=== PATIENT | female | born 2000 | race Caucasian/White ===

== ENCOUNTER 2023-01-20 18:29 | Day surgery (SDC) | payer BC, SELFPAY ==
[2023-01-20 18:35] VITALS: BP 128/80; PULSE 59; RESP 14; TEMP 36.8; O2SAT 100; BMI 19.1
--- NOTE | 2023-01-20 18:42 | ED.ABDPAIN ---
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 Patient notes the onset of nausea approximately 48 hours ago and then loose stools yesterday. Today however she now has vomiting and significant loose stools, both nonbloody in nature. Today her pain has worsened quite a bed any she is rating it an 8/10. She shows this to be the periumbilical and suprapubic areas. She has not been able to take any medication. She knows of no ill contacts. She denies a sore throat cough or other respiratory illnesses. She does have body aches. Her friend accompanies her and she herself is not ill. Dimple is normally a healthy female. She denies any possibility of . No history of GI pathology including ulcerative colitis or Crohn's disease. She notes that the onset of the nausea occurred after eating at the cafeteria at [employer]. Related Data Home Medications Medication Instructions Recorded Confirmed plecanatide 3 mg tablet (Trulance) 5 mg PO DAILY 01/20/23 01/20/23 Allergies Allergy/AdvReac Type Severity Reaction Status Date / Time No Known Drug Allergies Allergy Verified 01/20/23 18:33 Review of Systems Status of ROS Reports: 10 or more systems reviewed and unremarkable except as noted in History and below Const Reports: chills and fatigue; Denies: fever Eyes Denies: change in vision ENMT Denies: throat pain, throat swelling, difficulty swallowing or hoarseness Cardio Denies: chest pain, swelling of feet/ankles or shortness of breath with exertion Resp Denies: shortness of breath, cough or wheezing GI Reports: abdominal pain, nausea, vomiting and diarrhea; Denies: difficulty swallowing or blood in stool Denies: painful urination, urinary frequency or urinary urgency Integ/Breast Denies: rash Neuro Denies: headache, numbness in extremities or weakness in extremities Endo Reports: fatigue Allergy/Immuno Denies: throat swelling or wheezing PFSH PFSH Social History Smoking Status: Never smoker How often do you have a drink containing alcohol: never AUDIT-C Alcohol total score: 0 Non-prescribed substance use: denies use Exam Narrative: Exam Narrative: Patient is alert and oriented. She seems very anxious about being here and and is borderline tearful. She is mentating normally and speech is appropriate. Eyes are clear. Oral cavity with moist mucous membranes. No lymphadenopathy. Heart with a regular rate and rhythm. Lungs are clear bilaterally. Abdomen shows tenderness chest beneath the umbilicus. I do not palpate any masses. Moving all extremities. Bowel sounds are present and are normal. Const: Vital Signs, click to edit/add: Vital Signs - 24 hr 01/20/23 18:35 01/20/23 19:40 Temperature 98.2 F Pulse Rate [Pulse Oximeter] 59 L 57 L Respiratory Rate 14 16 Blood Pressure [Ri ght Upper Arm] 128/80 124/85 Pulse Oximetry 100 98 Oxygen Delivery Me thod Room Air Room Air Documenting provider has reviewed patient's vital signs: yes Course Course ED Course: Differential diagnosis includes but is not limited to food borne illness, viral gastroenteritis, colitis, small-bowel obstruction, appendicitis. Will place IV and give Zofran 4 mg as well as 1 L of normal saline. Will check CBC, comprehensive panel, CRP, urinalysis. COVID test has already been strep done and is pending. Reevaluation(s) Reevaluation #1: Nursing staff notes that the Zofran has not helped. I did initially suggest morphine as well as Ativan but patient does not want to use morphine nor does she want to have a CT is a suggested given the level of her pain. I did remind her that she was rating her pain an 8/10 and she now states that it is not as bad as that. She is receptive to Toradol and Ativan at this time. If we need to use morphine to control her pain she will allow was to proceed with CT. Reevaluation #2: Dimple notes no improvement with Toradol and thus does agree to morphine 4 mg as well as a CT. I recommend CT at this time as pain appears to be out of proportion to exam and laboratory findings. Urinalysis is noted to have some white cells but I believe this likely pyuria rather than UTI. However, will await the official radiological read of her CT. Reevaluation #3: Re-examination of Dimple shows her belly to be soft. She has minimal pain with palpation of the right lower quadrant. No rebound pain after administration of morphine. Hip flexion internal external rotation of the hip does not increase her discomfort. Consultations Consultation #1: I consulted with Dr. Nieto given the findings on CT which did includes a large appendix with appendicolith. However patient has reassuring white count and normal CRP as well as no evidence of periappendiceal inflammatory changes. Has at this time most likely explanation is a gastroenteritis with an incidental finding of large appendix. However this does place patient in a greater risk for acute appendicitis at a later time. Vital Signs Vital signs: Initial Vital Signs Temperature 98.2 F 01/20/23 18:35 Temperature Source Temporal Artery Scan 01/20/23 18:35 Pulse Rate 59 L 01/20/23 18:35 Pulse Rhythm Regular 01/20/23 18:35 Respiratory Rate 14 01/20/23 18:35 Blood Pressure 128/80 01/20/23 18:35 Blood Pressure Mean 96 01/20/23 18:35 Blood Pressure Position Sitting 01/20/23 18:35 Pulse Oximetry 100 01/20/23 18:35 Oxygen Delivery Method Room Air 01/20/23 18:35 Vital Signs Temperature 98.2 F 01/20/23 18:35 Pulse Rate 59 L 01/20/23 18:35 Respiratory Rate 14 01/20/23 18:35 Blood Pressure 128/80 01/20/23 18:35 Pulse Oximetry 100 01/20/23 18:35 Oxygen Delivery Method Room Air 01/20/23 18:35 Temperature 98.2 F 01/20/23 18:35 Pulse Rate 57 L 01/20/23 19:40 Respiratory Rate 16 01/20/23 19:40 Blood Pressure 124/85 01/20/23 19:40 Pulse Oximetry 98 01/20/23 19:40 Oxygen Delivery Method Room Air 01/20/23 19:40 Medications Administered Medications: Generic Name Dose Route Start Last Admin Trade Name Freq PRN Reason Stop Dose Admin Ondansetron HCl 4 mg 01/20/23 18:49 01/20/23 19:14 Ondansetron 2 Mg/Ml Inj IVP 4 mg ONCE PRN Administration Discontinued Medications Generic Name Dose Route Start Last Admin Trade Name Freq PRN Reason Stop Dose Admin Sodium Chloride 1,000 mls @ 1,000 mls/hr 01/20/23 18:49 01/20/23 20:26 0.9 % Sodium Chloride 1000 Ml IV 01/20/23 19:48 Infused .Q1H MEGAN Infusion Ketorolac Tromethamine 15 mg 01/20/23 19:56 01/20/23 20:03 Ketorolac 15 Mg/Ml Inj IVP 01/20/23 19:57 15 mg ONCE ONE Administration Lorazepam 0.5 mg 01/20/23 19:47 01/20/23 19:59 Lorazepam 2 Mg/Ml Inj IVP 01/20/23 19:48 0.5 mg ONCE ONE Administration Morphine Sulfate 2 mg 01/20/23 19:46 01/20/23 19:59 Morphine 2 Mg/Ml Inj IVP 01/20/23 19:47 Not Given ONCE ONE Morphine Sulfate 4 mg 01/20/23 20:31 01/20/23 20:37 Morphine 4 Mg/Ml Inj IVP 01/20/23 20:32 4 mg ONCE ONE Administration MDM - Abdominal Pain MDM Narrative Medical decision making narrative: 1. Abdominal pain-this most likely represents a gastroenteritis as patient and does have mild wall thickening of the colon. However the appendix is enlarged at 12 mm with a mildly thickened wall and a very large appendicoliths. There are no surrounding inflammatory changes. I have spoken with Dr. Nieto, surgical consult. At this time patient's story fits more with a GI issue rather than acute appendicitis. Patient required morphine as Toradol did not work for her pain. She required Ativan for nausea as she was still vomiting after Zofran administration. 2. Disposition -admit to [facility] under the care of Dr. Hubbard, hospitalist. Lab Data Attestation: I reviewed the patient's lab results. Labs: Lab Results 01/20/23 01/20/23 01/20/23 Range/Units 18:44 18:59 19:06 WBC 9.58 (4.50-11.00) K/uL RBC 4.40 (4.00-5.20) m/uL Hgb 14.0 (12.0-16.0) gm/dL Hct 43.1 (33.0-51.0) % MCV 98 (80-100) fL MCH 32 (26-34) pg MCHC 33 (32-36) gm/dL RDW Coeff of Becky 12.3 (11.5-15.5) % Plt Count 283 (140-440) K/uL Neut % (Auto) 72.1 H (42.0-72.0) % Lymph % (Auto) 18.1 L (20-44) % [place] % (Auto) 8.4 (0.0-11.0) % Eos % (Auto) 0.8 (0.0-7.0) % Baso % (Auto) 0.4 (0.0-3.0) % Neut # (Auto) 6.90 (1.7-7.0) K/uL Lymph # (Auto) 1.70 (0.90-2.90) K/uL [place] # (Auto) 0.80 (0.00-0.90) K/UL Eos # (Auto) 0.08 (0.00-0.50) K/uL Baso # (Auto) 0.04 (0.00-0.30) K/uL Abs Immat Gran (auto) 0.02 (0.00-0.30) K/uL Imm/Tot Granulo (auto) 0.2 % Sodium 140 (135-149) mmol/L Potassium 3.3 L (3.6-5.1) mmol/L Chloride 102 (96-114) mmol/L Carbon Dioxide 24 (20-32) mmol/L Anion Gap 14 (7-15) mEq/L BUN 11 (5-24) mg/dL Creatinine 0.6 (0.5-1.5) mg/dL Estimated Creat Clear 122.14 Estimated GFR 131 ml/min Glucose 102 (60-115) mg/dL Lactate 1.0 (0.5-1.9) mmol/L Calcium 9.7 (8.4-10.6) mg/dL Total Bilirubin 0.6 (0.1-1.5) mg/dL AST 32 (12-35) U/L ALT 22 (4-35) U/L Alkaline Phosphatase 71 (40-150) U/L C-Reactive Protein < 0.5 L (0.5-1.0) mg/dL Total Protein 8.8 H (6.0-8.3) g/dL Albumin 5.2 H (3.3-5.0) g/dL Urine Color Yellow (Yellow) Urine Appearance Clear (Clear) Urine pH 5.5 (5.0-8.5) Ur Specific [place] >= 1.030 (1.000-1.030) Urine Protein Negative (Negative) Urine Glucose (UA) Negative (Negative) Urine Ketones 2+ A (Negative) Urine Blood Negative (Negative) Urine Nitrite Negative (Negative) Urine Bilirubin Negative (Negative) Urine Urobilinogen 0.2 (0.2-1.0) Ur Leukocyte Esterase 1+ A (Negative) Urine RBC 0-2 (0-2) Urine WBC 5-10 A (0-5) Ur Squamous Epith Cells None (None-Few) Urine Bacteria Few A (None) SARS-CoV-2 (PCR) Negative SARS-CoV-2 (Negative) Influenza Type A (PCR) Negative PCR FLU A (Negative) Influenza Type B (PCR) Negative PCR FLU B (Negative) RSV (PCR) Negative PCR RSV (Negative) Imaging Data CT scan - abdomen: Attestation: I have reviewed the pertinent imaging results. Discharge Plan Discharge Prescriptions: No Action Trulance 3 mg tablet 5 mg PO DAILY Follow Up/Referrals: Provider,Not a Local [Primary Care Provider] -
[2023-01-20 19:06] LABS: Appearance Urine Clear (Clear); Bilirubin Urine Negative (Negative); Blood Urine Negative (Negative); Color Urine Yellow (Yellow); Glucose Urine Negative (Negative); Ketones Urine 2+ (Negative); Leukocyte Esterase Urine 1+ (Negative); Nitrite Urine Negative (Negative); Protein Urine Negative (Negative); Specific Gravity Urine >= 1.030 (1.000-1.030); Urobilinogen Urine 0.2 (0.2-1.0); pH Urine 5.5 (5.0-8.5)
[2023-01-20] MEDS: 0.9 % SODIUM CHLORIDE 1000 ml 1,000 ML IV (19:12)
[2023-01-20 19:14] LABS: Basophils Absolute Auto 0.04 K/uL (0.00-0.30); Basophils Percent Auto 0.4 % (0.0-3.0); Eosinophils Absolute Auto 0.08 K/uL (0.00-0.50); Eosinophils Percent Auto 0.8 % (0.0-7.0); Hematocrit 43.1 % (33.0-51.0); Immature Granulocytes Abs Auto 0.02 K/uL (0.00-0.30); Immature Granulocytes Pct Auto 0.2 %; Lymphocytes Percent Auto 18.1 % (20-44); Mean Corpuscular HGB Conc 33 gm/dL (32-36); Mean Corpuscular Hemoglobin 32 pg (26-34); Mean Corpuscular Volume 98 fL (80-100); Monocytes Percent Auto 8.4 % (0.0-11.0); Neutrophils Percent Auto 72.1 % (42.0-72.0); Platelet Count* 283 K/uL (140-440); RDW Coefficient of Variation % 12.3 % (11.5-15.5); White Blood Count* 9.58 K/uL (4.50-11.00)
[2023-01-20] MEDS: ONDANSETRON 2 MG/ML inj 4 MG IVP (19:14)
[2023-01-20 19:16] LABS: Slide Review Reflex No
[2023-01-20 19:19] LABS: Bacteria Urine Few; RBC Urine 0-2 (0-2)
[2023-01-20 19:27] LABS: Albumin* 5.2 g/dL (3.3-5.0); Chloride* 102 mmol/L (96-114)
[2023-01-20 19:28] LABS: Potassium* 3.3 mmol/L (3.6-5.1); Sodium* 140 mmol/L (135-149)
[2023-01-20 19:30] LABS: Bilirubin Total* 0.6 mg/dL (0.1-1.5); Creatinine* 0.6 mg/dL (0.5-1.5); Est. Creatinine Clearance* 122.14; Estimated Glomerular Filt Rate 131 ml/min
[2023-01-20 19:31] LABS: Alanine Aminotransferase* 22 U/L (4-35); Alkaline Phosphatase* 71 U/L (40-150); Anion Gap 14 mEq/L (7-15); Aspartate Amino Transferase* 32 U/L (12-35); Blood Urea Nitrogen* 11 mg/dL (5-24); Calcium* 9.7 mg/dL (8.4-10.6); Carbon Dioxide* 24 mmol/L (20-32); Glucose* 102 mg/dL (60-115); Total Protein* 8.8 g/dL (6.0-8.3)
[2023-01-20 19:35] LABS: C Reactive Protein* < 0.5 mg/dL (0.5-1.0)
[2023-01-20 19:40] VITALS: BP 124/85; PULSE 57; RESP 16; O2SAT 98
[2023-01-20 19:42] LABS: PCR FLU A Negative PCR FLU A (Negative); PCR FLU B Negative PCR FLU B (Negative); PCR RSV Negative PCR RSV (Negative)
[2023-01-20 19:43] LABS: SARS PCR* Negative SARS-CoV-2 (Negative)
--- NOTE | 2023-01-20 19:46 | ED.NURSE ---
Patient had one emesis after zofran administration, abd pain 10/11. Provider updated.
[2023-01-20] MEDS: LORazepam 2 MG/ML inj 0.5 MG IVP (19:59)
[2023-01-20] MEDS: KETOROLAC 15 MG/ML inj IVP (20:03)
--- NOTE | 2023-01-20 20:31 | CRLHL7_ITS ---
For Patients: As a result of the Century Cures Act, medical imaging exams and procedure reports are released immediately into your electronic medical record. You may view this report before your referring provider. If you have questions, please contact your health care provider. INDICATION: Periumbilical abdominal pelvic pain TECHNIQUE: CT Abdomen and pelvis with i.v. contrast. Coronal and sagittal reformats were obtained. CONTRAST: 56 mL Isovue 370 COMPARISON: None FINDINGS: Lower chest: Unremarkable. Liver: Mild periportal edema is present which may be due to aggressive intravenous hydration. Spleen: Unremarkable. Pancreas: Unremarkable. Gallbladder: Mild nonspecific gallbladder wall edema is noted. Kidney: Unremarkable. No kidney or ureteral stones or obstruction seen. Adrenal: Unremarkable. Bowel: The colon is collapsed and difficult to evaluate but there is suspected mild fold thickening. The appendix is distended measuring 12 mm. There is mild wall thickening and no surrounding inflammatory changes noted. There is a tubular hyperdense structure along the base of the appendix measuring 2.5 x 1 cm which may represent a large appendicolith. Vascular: Unremarkable. Lymph: Unremarkable. Peritoneum: Unremarkable. No pneumoperitoneum is seen. A small amount of ascites is present and is likely physiologic in origin. Pelvis: Unremarkable. Soft tissue: Unremarkable. Bone: Unremarkable for age. IMPRESSIONS: 1. The appendix is distended measuring 12 mm. There is mild wall thickening and no surrounding inflammatory changes noted. Close clinical follow-up is recommended to exclude acute appendicitis. 2. The colon is collapsed and difficult to evaluate but there is suspected mild fold thickening. This may be due to infectious colitis or inflammatory bowel disease. Dictated by Abhilash Harrington MD @ 01/20/2023 9:50:46 PM Please note that all CT scans at this facility use dose modulation, iterative reconstruction, and/or weight-based dosing when appropriate to reduce radiation dose to as low as reasonably achievable. Dictated by: Abhilash Harrington MD @ 01/20/2023 21:50:48 (Electronically Signed)
[2023-01-20] MEDS: MORPHINE 4 MG/ML INJ IVP (20:37)
[2023-01-20 23:00] VITALS: BP 118/72; PULSE 61; RESP 16; TEMP 36.9; O2SAT 99; BMI 19.1
--- NOTE | 2023-01-20 23:01 | PM.IMHP1 ---
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 Patient reports she has had longstanding gastrointestinal problems with food intolerance to gluten and dairy and high-fiber foods. She has lots of abdominal bloating and acid reflux symptoms as well. Normally she is constipated and is taking Trulance daily to treat constipation. Starting 2 weeks ago she had watery diarrhea approximately 7 watery stools per day. She has thinks there may have been a little bit of blood in the stool occasionally. She was generally doing well without pain or nausea or vomiting. She was eating normally over the last 2 weeks until today. Starting yesterday she had onset of periumbilical crampy abdominal pain. He was mild and intermittent yesterday and she was generally doing okay. She was able to eat and drink. Today however the pain got worse and became constant. It remained periumbilical. She developed severe nausea then vomiting and recurrent dry heaves. The pain became severe enough that she was having trouble walking. She did have food for lunch today but after that her pain got much worsened she has had nothing to eat or drink. She has had no fever. She reports no urinary symptoms. She has somewhat irregular menses but is expecting her menstrual. Start any day. No previous abdominal surgery. She had tonsillectomy as a child. She is not aware of any problems with anesthesia, bleeding or thrombophilia. Family history is notable for both her mother and sister having gastrointestinal problems similar to hers. Her mom also has breast cancer Review of Systems Narrative: You systems is negative except as noted above [facility] Medical History (Updated 01/20/23 @ 23:14 by Sanket Hubbard MD) Gastroesophageal reflux ?K21.9 - Gastro-esophageal reflux disease without esophagitis (ICD-10) Food intolerance ?K90.49 - Malabsorption due to intolerance, not elsewhere classified (ICD-10) Chronic constipation ?K59.09 - Other constipation (ICD-10) Surgical History (Updated 01/20/23 @ 23:09 by Sanket Hubbard MD) History of tonsillectomy ?Z90.89 - Acquired absence of other organs (ICD-10) Family History (Updated 01/20/23 @ 23:09 by Sanket Hubbard MD) Mother Breast cancer Social History (Updated 01/20/23 @ 23:10 by Sanket Hubbard MD) Narrative: 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. She does not smoke. She drinks a couple alcoholic beverages on weekends. No recreational drug use. Smoking Status: Never smoker How often do you have a drink containing alcohol: never AUDIT-C Alcohol total score: 0 Non-prescribed substance use: denies use Meds Home Medications and Allergies Home Medications Medication Instructions Recorded Confirmed Type plecanatide 3 mg tablet (Trulance) 5 mg PO DAILY 01/20/23 01/20/23 History Home Medication Comments: Famotidine Allergies Allergy/AdvReac Type Severity Reaction Status Date / Time No Known Drug Allergies Allergy Verified 01/20/23 18:33 Exam Narrative: Exam Narrative: She is alert and appears in no distress. She gives her own history with good detail. Eyes normal. Sclerae nonicteric. Oropharynx is normal. Multiple facial piercings. Neck is supple without mass or adenopathy. Respirations are clear to auscultation. No CVA tenderness. Cardiovascular: S1, S2, regular rate and rhythm. Abdomen: Bowel sounds are diminished but present. Abdomen is soft. She has right lower quadrant tenderness in the area of McBurney's point. This is reproducible. No other tenderness. No peritonitis. Extremities with no edema, intact sensation, intact pulses, good capillary refill. Const: Vital Signs, click to edit/add: Vital Signs - 24 hr 01/20/23 18:35 01/20/23 19:40 Temperature 98.2 F Pulse Rate [Pulse Oximeter] 59 L 57 L Respiratory Rate 14 16 Blood Pressure [Ri ght Upper Arm] 128/80 124/85 Pulse Oximetry 100 98 Oxygen Delivery Me thod Room Air Room Air Documenting provider has reviewed patient's vital signs: yes Hospitalist - H&P: Result Labs Labs: Short CBC 01/20/23 Range/Units 19:06 WBC 9.58 (4.50-11.00) K/uL Hgb 14.0 (12.0-16.0) gm/dL Hct 43.1 (33.0-51.0) % Plt Count 283 (140-440) K/uL BMP 01/20/23 19:06 Sodium 140 Potassium 3.3 L Chloride 102 Carbon Dioxide 24 BUN 11 Creatinine 0.6 Glucose 102 Calcium 9.7 Liver Function 01/20/23 Range/Units 19:06 Total Bilirubin 0.6 (0.1-1.5) mg/dL AST 32 (12-35) U/L ALT 22 (4-35) U/L Alkaline Phosphatase 71 (40-150) U/L Albumin 5.2 H (3.3-5.0) g/dL Urine 01/20/23 Range/Units 18:59 Urine Color Yellow (Yellow) Urine Appearance Clear (Clear) Urine pH 5.5 (5.0-8.5) Ur Specific [place] >= 1.030 (1.000-1.030) Urine Protein Negative (Negative) Urine Glucose (UA) Negative (Negative) Imaging CT scan - abdomen: Radiologist's impression: INDICATION: Periumbilical abdominal pelvic pain TECHNIQUE: CT Abdomen and pelvis with i.v. contrast. Coronal and sagittal reformats were obtained. CONTRAST: 56 mL Isovue 370 COMPARISON: None FINDINGS: Lower chest: Unremarkable. Liver: Mild periportal edema is present which may be due to aggressive intravenous hydration. Spleen: Unremarkable. Pancreas: Unremarkable. Gallbladder: Mild nonspecific gallbladder wall edema is noted. Kidney: Unremarkable. No kidney or ureteral stones or obstruction seen. Adrenal: Unremarkable. Bowel: The colon is collapsed and difficult to evaluate but there is suspected mild fold thickening. The appendix is distended measuring 12 mm. There is mild wall thickening and no surrounding inflammatory changes noted. There is a tubular hyperdense structure along the base of the appendix measuring 2.5 x 1 cm which may represent a large appendicolith. Vascular: Unremarkable. Lymph: Unremarkable. Peritoneum: Unremarkable. No pneumoperitoneum is seen. A small amount of ascites is present and is likely physiologic in origin. Pelvis: Unremarkable. Soft tissue: Unremarkable. Bone: Unremarkable for age. IMPRESSIONS: 1. The appendix is distended measuring 12 mm. There is mild wall thickening and no surrounding inflammatory changes noted. Close clinical follow-up is recommended to exclude acute appendicitis. 2. The colon is collapsed and difficult to evaluate but there is suspected mild fold thickening. This may be due to infectious colitis or inflammatory bowel disease. Assessment and Plan Assessment and plan (1) Abdominal pain: Problem comment: I think this is most likely appendicitis. CT findings and right lower quadrant tenderness consistent with appendicitis. Status: Acute (2) Appendicolith: Status: Acute (3) Diarrhea: Problem comment: Patient with chronic constipation has had diarrhea for 2 weeks. Cause of this is uncertain. History suggest possible irritable bowel syndrome or inflammatory bowel disease as a chronic medical problem. Status: Acute Plan Patient is admitted to the hospital for surgical consultation and possible of appendectomy in the morning. Will initiate Zosyn tonight. NPO. IV fluids and IV Antiemetics and pain medicines as needed. Dr. Nieto has been consulted Total time spent today is 55 minutes, 40 minutes in coordination of care and discussing with patient and other providers ongoing evaluation management of abdominal pain
[2023-01-20 23:09] LABS: Ur HCG Qualitative* Negative (Negative)
[2023-01-21] VITALS (18 sets, daily range): BP systolic 106–133; BP diastolic 74–97; PULSE 46–71; RESP 14–18; TEMP 36.3–37.2; O2SAT 97–100
[2023-01-21] MEDS: POTASSIUM CHLORIDE 10 MEQ/100 ML PIGGYBACK 100 MEQ IVPB (00:28)
[2023-01-21] MEDS: LACTATED RINGERS 1000 ML 1,000 ML 125 ML IV (00:28)
[2023-01-21] MEDS: SODIUM CHLORIDE 0.9 % (FLUSH) 10 ML SYRINGE 5 ML IVF (01:41)
[2023-01-21] MEDS: LORazepam 2 MG/ML inj 0.5 MG IVP (01:41)
[2023-01-21] MEDS: POTASSIUM CHLORIDE 10 MEQ/100 ML PIGGYBACK 5 MEQ IVPB (04:05)
[2023-01-21] MEDS: PIPERACILLIN/TAZOBACTAM 3.375 GM in 0.9 % SODIUM CHLORIDE Mini-bag 100 ML IVPB (05:04)
[2023-01-21 06:19] LABS: Basophils Percent Auto 0.2 % (0.0-3.0); Eosinophils Percent Auto 0.4 % (0.0-7.0); Hematocrit 34.8 % (33.0-51.0); Hemoglobin* 11.4 gm/dL (12.0-16.0); Immature Granulocytes Pct Auto 0.1 %; Lymphocytes Percent Auto 16.8 % (20-44); Mean Corpuscular HGB Conc 33 gm/dL (32-36); Mean Corpuscular Hemoglobin 32 pg (26-34); Mean Corpuscular Volume 99 fL (80-100); Monocytes Percent Auto 9.4 % (0.0-11.0); Neutrophils Percent Auto 73.1 % (42.0-72.0); Platelet Count* 222 K/uL (140-440); RDW Coefficient of Variation % 12.4 % (11.5-15.5); Red Blood Count 3.53 m/uL (4.00-5.20); White Blood Count* 12.07 K/uL (4.50-11.00)
[2023-01-21 06:27] LABS: Slide Review Reflex No
[2023-01-21 06:35] LABS: Chloride* 107 mmol/L (96-114); Sodium* 138 mmol/L (135-149)
[2023-01-21 06:38] LABS: Anion Gap 10 mEq/L (7-15); Blood Urea Nitrogen* 10 mg/dL (5-24); Carbon Dioxide* 21 mmol/L (20-32); Creatinine* 0.5 mg/dL (0.5-1.5); Est. Creatinine Clearance* 146.31; Estimated Glomerular Filt Rate 137 ml/min; Glucose* 86 mg/dL (60-115)
[2023-01-21 06:39] LABS: Calcium* 8.3 mg/dL (8.4-10.6)
[2023-01-21 06:41] LABS: C Reactive Protein* 1.3 mg/dL (0.5-1.0)
--- NOTE | 2023-01-21 07:07 | PM.GSCN ---
History of Present Illness Consult details Date Seen: 01/21/23 Consult date: 01/21/23 Narrative: The patient is a 22-year-old female who who was admitted to the hospital overnight with a 2 day history of abdominal pain in the setting of 2 weeks recent diarrhea. 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 This manifests with abdominal bloating and acid reflux. She does have issues with constipation and takes Trulance daily. Two weeks ago she began having watery diarrhea. With this she was not having any pain, nausea or vomiting. Starting 2 days ago she had the onset of periumbilical abdominal pain. It started out mild but yesterday the pain got worse. She developed severe nausea and vomiting and she was unable to eat or drink. When she came in to be seen her pain was so severe that she required pain medication before she could even be examined. Has continued to have diarrhea. This morning she feels as though her pain is better. [facility] Medical History (Updated 01/20/23 @ 23:14 by Sanket Hubbard MD) Gastroesophageal reflux ?K21.9 - Gastro-esophageal reflux disease without esophagitis (ICD-10) Food intolerance ?K90.49 - Malabsorption due to intolerance, not elsewhere classified (ICD-10) Chronic constipation ?K59.09 - Other constipation (ICD-10) Surgical History (Updated 01/20/23 @ 23:09 by Sanket Hubbard MD) History of tonsillectomy ?Z90.89 - Acquired absence of other organs (ICD-10) Family History (Updated 01/20/23 @ 23:09 by Sanket Hubbard MD) Mother Breast cancer Social History (Updated 01/20/23 @ 23:10 by Sanket Hubbard MD) Narrative: Patient is a 22-year-old [employer] student from [employer]. She does not smoke. She drinks a couple alcoholic beverages on weekends. No recreational drug use. What is your current living situation?: I presently have a place to live Problems where you live: no known problems Problems where you live details: NO KNOWN PROBLEMS In the past 12 months, utilities in danger of being shut off: no In past 12 months, lack of transportation kept you from medical appts, meetings, work, or getting things needed for daily living: no In the past 12 mos, have been you worried that your food would run out before you had money to buy more?: never true In the past 12 mos, the food you bought just didn't last and you didn't have money to buy more?: never true Highest level of school completed/degree received: some college, no degree Smoking Status: Never smoker Do you use any of these nicotine containing products: Vaping Products Second hand tobacco smoke exposure: No How often do you have a drink containing alcohol: never How many standard drinks containing alcohol do you have on a typical day: 3 or 4 How often do you have six or more drinks on one occasion: Never AUDIT-C Alcohol total score: 1 Non-prescribed substance use: denies use Non-prescribed substance use details: GUMMIES LAST INGESTED 2 WEEKS AGO. Caffeine: Yes (COFFEE 3 CUP/DAY.) How often does anyone, including family, friends and others, physically hurt you: never How often does anyone, including family, friends and others, insult or talk down to you: never How often does anyone, including family, friends and others, threaten you with harm: never How often does anyone, including family, friends and others, scream or curse at you: never service: No Meds Home Medications and Allergies Home Medications Medication Instructions Recorded Confirmed Type plecanatide 3 mg tablet (Trulance) 3 mg PO DAILY 01/20/23 01/21/23 History famotidine 20 mg tablet (Acid 20 mg PO BID PRN 01/21/23 01/21/23 History Controller) Allergies Allergy/AdvReac Type Severity Reaction Status Date / Time No Known Drug Allergies Allergy Verified 01/20/23 18:33 Exam Narrative: Exam Narrative: General appearance: Alert, cooperative, and in no distress Eyes: PERRLA, eye lids clear, and sclera white HENT Head: Normocephalic Ears: External ears normal Pulmonary: Breathing nonlabored on room air Cardiovascular Heart: Regular rate Extremities: warm and well perfused Gastrointestinal Abdominal: No scars. She is mildly tender in the right lower quadrant/Right lateral abdomen. No rebound. Musculoskeletal: Extremities: Upper: Both upper extremities have normal joint range of motion and intact strength. Lower: Both lower extremities have normal joint range of motion and intact strength. Skin: Normal skin color, texture, and turgor. Neurologic: No focal deficits Psychiatric: Alert, oriented, cooperative, normal affect. Const: Vital Signs, click to edit/add: Vital Signs - 24 hr 01/20/23 18:35 01/20/23 19:40 01/20/23 23:00 Temperature 98.2 F 98.4 F Pulse Rate [Pulse Oximeter] 59 L 57 L 61 Respiratory Rate 14 16 16 Blood Pressure [Ri ght Arm] 118/72 Blood Pressure [Ri ght Upper Arm] 128/80 124/85 Pulse Oximetry 100 98 99 Oxygen Delivery Me thod Room Air Room Air Room Air 01/20/23 23:00 01/20/23 23:00 01/21/23 03:00 Temperature 98.4 F 98.6 F Pulse Rate [Pulse Oximeter] 61 54 L Respiratory Rate 16 16 14 Blood Pressure [Ri ght Arm] 118/72 106/77 Blood Pressure [Ri ght Upper Arm] Pulse Oximetry 99 99 98 Oxygen Delivery Me thod Room Air Room Air Room Air Results Labs Labs: Abnormal lab results 01/20/23 01/20/23 01/21/23 Range/Units 18:59 19:06 05:49 WBC 12.07 H (4.50-11.00) K/uL RBC 3.53 L (4.00-5.20) m/uL Hgb 11.4 L (12.0-16.0) gm/dL Neut % (Auto) 72.1 H 73.1 H (42.0-72.0) % Lymph % (Auto) 18.1 L 16.8 L (20-44) % Neut # (Auto) 8.80 H (1.7-7.0) K/uL Stafford # (Auto) 1.10 H (0.00-0.90) K/UL Potassium 3.3 L (3.6-5.1) mmol/L Calcium 8.3 L (8.4-10.6) mg/dL C-Reactive Protein < 0.5 L 1.3 H (0.5-1.0) mg/dL Total Protein 8.8 H (6.0-8.3) g/dL Albumin 5.2 H (3.3-5.0) g/dL Urine Ketones 2+ A (Negative) Ur Leukocyte Esterase 1+ A (Negative) Urine WBC 5-10 A (0-5) Urine Bacteria Few A (None) Diabetes panel 01/20/23 01/21/23 Range/Units 19:06 05:49 Sodium 140 138 (135-149) mmol/L Potassium 3.3 L 4.0 (3.6-5.1) mmol/L Chloride 102 107 (96-114) mmol/L Carbon Dioxide 24 21 (20-32) mmol/L BUN 11 10 (5-24) mg/dL Creatinine 0.6 0.5 (0.5-1.5) mg/dL Glucose 102 86 (60-115) mg/dL Calcium 9.7 8.3 L (8.4-10.6) mg/dL AST 32 (12-35) U/L ALT 22 (4-35) U/L Alkaline Phosphatase 71 (40-150) U/L Total Protein 8.8 H (6.0-8.3) g/dL Albumin 5.2 H (3.3-5.0) g/dL Calcium panel 01/20/23 01/21/23 Range/Units 19:06 05:49 Calcium 9.7 8.3 L (8.4-10.6) mg/dL Albumin 5.2 H (3.3-5.0) g/dL Pituitary panel 01/20/23 01/21/23 Range/Units 19:06 05:49 Sodium 140 138 (135-149) mmol/L Potassium 3.3 L 4.0 (3.6-5.1) mmol/L Chloride 102 107 (96-114) mmol/L Carbon Dioxide 24 21 (20-32) mmol/L BUN 11 10 (5-24) mg/dL Creatinine 0.6 0.5 (0.5-1.5) mg/dL Glucose 102 86 (60-115) mg/dL Calcium 9.7 8.3 L (8.4-10.6) mg/dL Adrenal panel 01/20/23 01/21/23 Range/Units 19:06 05:49 Sodium 140 138 (135-149) mmol/L Potassium 3.3 L 4.0 (3.6-5.1) mmol/L Chloride 102 107 (96-114) mmol/L Carbon Dioxide 24 21 (20-32) mmol/L BUN 11 10 (5-24) mg/dL Creatinine 0.6 0.5 (0.5-1.5) mg/dL Glucose 102 86 (60-115) mg/dL Calcium 9.7 8.3 L (8.4-10.6) mg/dL Total Bilirubin 0.6 (0.1-1.5) mg/dL AST 32 (12-35) U/L ALT 22 (4-35) U/L Alkaline Phosphatase 71 (40-150) U/L Total Protein 8.8 H (6.0-8.3) g/dL Albumin 5.2 H (3.3-5.0) g/dL All other labs normal. Imaging Abdomen CT scan report/results: report reviewed and image reviewed Additional studies: CT scan of the abdomen and pelvis: IMPRESSIONS: 1. The appendix is distended measuring 12 mm. There is mild wall thickening and no surrounding inflammatory changes noted. Close clinical follow-up is recommended to exclude acute appendicitis. 2. The colon is collapsed and difficult to evaluate but there is suspected mild fold thickening. This may be due to infectious colitis or inflammatory bowel disease. Dictated by Abhilash Harrington MD @ 01/20/2023 9:50:46 PM Assessment and Plan Assessment and plan (1) Abdominal pain: Problem comment: I think this is most likely appendicitis. CT findings and right lower quadrant tenderness consistent with appendicitis. Status: Acute (2) Appendicolith: Status: Acute (3) Diarrhea: Problem comment: Patient with chronic constipation has had diarrhea for 2 weeks. Cause of this is uncertain. History suggest possible irritable bowel syndrome or inflammatory bowel disease as a chronic medical problem. Status: Acute (4) Combined abdominal pain, vomiting, and diarrhea: Status: Acute Plan The patient is a 22-year-old female with likely acute appendicitis. A picture was somewhat clouded by CT scan showing a dilated appendix without inflammation, and possible mild thickened colon in the setting of 2 weeks of diarrheal illness. Furthermore she did not initially have an elevated white blood cell count. She was admitted overnight for observation. Today her white blood cell count is up to 12 despite being on antibiotics. I recommended proceeding with appendectomy. We discussed that this can most often be done laparoscopically. We discussed risks and benefits of the procedure including but not limited to bleeding, need for conversion to open, risk of injury to other structures, need for possible bowel resection, and abscess formation. The patient understands that the risk of abscess is higher if the appendix is perforated. For that reason, we generally keep patient is in the hospital on IV antibiotics until vital signs and white blood cell count had normalized. We also discussed recovery including 2 weeks of lifting restrictions. because of her continued diarrhea we will check stool cultures and also check for C diff.
--- NOTE | 2023-01-21 09:49 | PM.GSPRC ---
Operative Note Pre-op diagnosis: Acute appendicitis Post-op diagnosis: Same Type of Procedure: Laparoscopic appendectomy Indications: The patient is a 22-year-old female who presented to the emergency department with severe abdominal pain for 1 day. She has a history of recent diarrheal illness though this was not accompanied by pain. She attributed this to a medication that she is taking for chronic constipation. However, a CT scan was obtained and she was found to have a markedly dilated appendix with an appendicolith. She was found to be tender in the right lower quadrant the her white blood cell count was normal. She was admitted overnight for observation with a diagnosis of appendicitis versus colitis. The following morning she still had right lower quadrant pain though it was improved. Her white count, however was elevated. We discussed options, however given that her appendix was markedly abnormal I recommended appendectomy. After discussion, she agreed to proceed. Procedure Description: After discussing the risks and benefits of the procedure, the patient signed informed consent.? The operative site was marked and the patient was brought to the operating room and placed on the operating table in supine position.? Care was taken to pad the patient's pressure points.?? The patient was then intubated by anesthesia.?? The operative site was then prepped and draped in the usual sterile fashion.? A time-out was then performed. Entrance to the abdomen was obtained via a 5 mm optical trocar in the left upper quadrant. The abdomen was insufflated and briefly surveyed for any signs of injury. There were none. A 12 mm port was placed inferior to the umbilicus as well as a 5 mm port in the left lower quadrant. Both were done under direct vision. The patient was then placed in Trendelenburg position with the right side up. The small bowel was gently moved out of the way and the appendix was in view. It appeared dilated, particularly at the tip and reddened. The appendix was grasped and pulled into view. A mesenteric window was created between the base of the appendix and the mesoappendix. An Endo-EBONI purple load stapler was then used to transect the appendix at its base. A vascular load stapler was then used to divide the mesoappendix. The staple lines were inspected for bleeding. A small area of bleeding on the mesenteric staple line was clipped. This resulted in excellent hemostasis. The appendix was then removed from the abdomen using an Endo-Catch bag. The specimen was sent to pathology. The abdomen was then examined further. There was fluid noted in the pelvis. This was suction. Both ovaries and tubes were examined. The right ovary appeared mildly enlarged, however there did not appear to be any purulence suggestive of tubo-ovarian abscess. The small bowel was then run proximally from the ileocecal junction and there was no evidence of Meckel's diverticulum. Once this was done, the ports were then removed and the abdomen desufflated. The 12 mm port site fascia was closed with 0 Vicryl. The skin was then closed with absorbable subcuticular suture. Sterile dressings were then applied. Instrument sponge and needle counts were correct at the end of the case. The patient was then woken and transported to the PACU in stable condition. ? The patient tolerated the procedure well. Findings: Likely acute appendicitis with dilation of the appendiceal tip. Reactive fluid noted in the pelvis. Anesthesia: GETA Surgeon: Laura Nieto MD Estimated blood loss (mL): 5 Specimen: Appendix Condition: stable Disposition: PACU Date of procedure: 01/21/23
[2023-01-21] MEDS: LACTATED RINGERS 1000 ML 1,000 ML 100 ML IV ×2 (10:05→11:09)
[2023-01-21 10:25] LABS: Ur HCG Qualitative* Negative (Negative)
[2023-01-21] MEDS: PIPERACILLIN/TAZOBACTAM 3.375 GM INJ IVPB (11:01)
[2023-01-21] MEDS: BUPIVACAINE 0.25% 30 ML INJECTION (11:31)
--- NOTE | 2023-01-21 11:54 | W.ANESCHARGE ---
Anesthesia Charges Start Date/Time Anesthesia Start Date: 01/21/23 Anesthesia Start Time: 10:42 Stop Date/Time Anesthesia Stop Date: 01/21/23 Anesthesia Stop Time: 11:54
[2023-01-21] MEDS: HYDROmorphone 0.5 mg/0.5 ml inj IVP (12:15)
[2023-01-21] MEDS: ONDANSETRON 2 MG/ML inj 4 MG IVP (12:18)
--- NOTE | 2023-01-21 12:54 | PC.NURSE ---
Pt had 350cc out in urine, npo for appendectomy this am. Preop Check list completed. Eval by Dr. Nieto for surgical permit and physician spoke to pt's parents in [place]. To OR via w/c at 1155. Pt will d/c from surgical area, belongings sent with Mar[facility] Elena.
[2023-01-21] MEDS: HYDROCODONE-ACETAMIN 5-325 MG 1 TAB PO ×2 (13:03→14:10)
== END 2023-01-21 15:18 | disposition home or self-care (01) ==
LOC: ED 22:16 → SS 23:24 → MEDSURG 23:36
PROVIDERS: Anesthesiology; Family Medicine; Emergency Provider Family Medicine; Visit Provider Surgery
PROC: 0DTJ4ZZ Resection of Appendix, Percutaneous Endoscopic Approach (ICD-10-PCS; CPT 44970; principal; 2023-01-21 09:40)
DX: K35.80 Unspecified acute appendicitis (principal); R19.7 Diarrhea, unspecified
CPT/HCPCS: 44970; 00840; 36415; 74177; 80048; 80053; 81001; 81025; 83605; 85025; 86140; 87045; 87046; 87086; 87427; 87493; 87631; 88304; 99285; A9270; J0665; J1100; J1170; J1885; J2060; J2250; J2270; J2405; J2543; J2704; J2710; J3010; J3480; J7030; J7120; Q9967